=== PATIENT | female | born 1980 | race Two or more races ===

== ENCOUNTER 2024-06-03 08:26 | Outpatient (CLI) | payer OTHER ==
[~2024-06-03 08:26] MED LIST: CIPRO500 MG PO; IBUPROFEN800 MG PO; MOTRIN600 MG PO; ORPH100T PO; TAMS0.4C PO; TRAM1TAB PO
== END 2024-06-03 08:36 | disposition home or self-care (01) ==
LOC: MAMO-SONO 08:26
PROVIDERS: ATTEND Obstetrics & Gynecology
DX: N60.11 Diffuse cystic mastopathy of right breast (principal); N60.12 Diffuse cystic mastopathy of left breast; Z12.31 Encounter for screening mammogram for malignant neoplasm of breast